=== PATIENT | male | born 1990 | race Caucasian/White ===

== ENCOUNTER 2016-07-10 00:37 | Emergency (ER) | payer OTHER ==
--- NOTE | 2016-07-10 02:13 | ED ---
ENT HPI - General Chief complaint: Dental/Oral Stated complaint: jaw pain Time Seen by Provider: 07/10/16 01:37 Source: patient, RN notes reviewed, old records reviewed Mode of arrival: ambulatory Limitations: no limitations - History of Present Illness Initial comments: This is a 25 year old male with chief complaint of left sided jaw pain. PAtient states that the pain only occurs with certain muvements of the mouth, states that he has poor dentition but denies any tooth pain, swelling or drainage arond the gums. PAtient denies difficulty opening or closing mouth. - Related Data Home Medications Medication Instructions Recorded Confirmed Ibuprofen [Motrin] 800 mg PO TID 07/14/16 07/14/16 Allergies Allergy/AdvReac Type Severity Reaction Status Date / Time diphenhydramine Allergy Rash/Hives Verified 07/14/16 03:53 [From Ganesh] Review of Systems ROS Statement: Those systems with pertinent positive or pertinent negative responses have been documented in the HPI. ROS Other: All systems not noted in ROS Statement are negative. Constitutional: Denies: fever Eyes: Denies: eye pain ENT: Denies: ear pain, throat pain Respiratory: Reports: as per HPI. Denies: cough, dyspnea Cardiovascular: Reports: chest pain. Denies: palpitations Endocrine: Denies: fatigue Gastrointestinal: Denies: abdominal pain Genitourinary: Denies: urgency, dysuria Musculoskeletal: Denies: back pain Skin: Denies: rash Neurological: Denies: headache Psychiatric: Denies: anxiety Past Medical History Past Medical History: No Reported History History of Any Multi-Drug Resistant Organisms: None Reported Past Surgical History: No Surgical Hx Reported Past Psychological History: No Psychological Hx Reported Smoking Status: Current every day smoker Past Alcohol Use History: Occasional Past Drug Use History: None Reported General Exam Limitations: no limitations General appearance: alert, in no apparent distress Head exam: Present: atraumatic, normocephalic, normal inspection Eye exam: Present: normal appearance, PERRL, EOMI. Absent: scleral icterus, conjunctival injection, periorbital swelling ENT exam: Present: normal exam, mucous membranes moist Neck exam: Present: normal inspection. Absent: tenderness, meningismus, lymphadenopathy Respiratory exam: Present: normal lung sounds bilaterally. Absent: respiratory distress, wheezes, rales, rhonchi, stridor Cardiovascular Exam: Present: regular rate, normal rhythm, normal heart sounds. Absent: systolic murmur, diastolic murmur, rubs, gallop, clicks GI/Abdominal exam: Present: soft, normal bowel sounds. Absent: distended, tenderness, guarding, rebound, rigid Extremities exam: Present: normal inspection, full ROM, normal capillary refill. Absent: tenderness, pedal edema, joint swelling, calf tenderness Back exam: Present: normal inspection Neurological exam: Present: alert, oriented X3, CN II-XII intact Psychiatric exam: Present: normal affect, normal mood Skin exam: Present: warm, dry, intact, normal color. Absent: rash Course Vital Signs 07/10/16 07/10/16 00:53 02:45 Temperature 98.5 F 98.3 F Pulse Rate 100 77 Respiratory 20 16 Rate Blood Pressure 134/75 117/73 O2 Sat by Pulse 100 99 Oximetry Medical Decision Making - Medical Decision Making Patient is a 25 year old male with left upper jaw pain, patient has poor dentition in molars. No evidence of abscess or erythema. Discussed likely an exposed nerve root causing referred pain. Discarged patient with pain medicaiton , discussed follow up with dentist and oral surgeon. Agrees to treatment plan and will comply. Disposition Clinical Impression: Jaw pain Disposition: HOME SELF-CARE Condition: Good Instructions: Temporomandibular Disorder (ED) Additional Instructions: Patient advised to follow-up with primary care provider. Also follow-up with dentist for chronic tooth pain. Return to emergency department if any alarming signs or symptoms occur. Referrals: Kris Sykes MD [Primary Care Provider] - 1-2 days Time of Disposition: 02:12
[2016-07-10 02:51] VITALS: BP 117/73; PULSE 77; RESP 16; TEMP 98.3
== END 2016-07-10 02:45 | disposition home or self-care (01) ==
LOC: EC 00:37
DX: R68.84 Jaw pain (principal); F17.200 Nicotine dependence, unspecified, uncomplicated
CPT/HCPCS: 99283

== ENCOUNTER 2016-07-14 03:47 | Emergency (ER) | payer OTHER ==
--- NOTE | 2016-07-14 04:12 | ED ---
General Adult HPI - General Chief complaint: Back Pain/Injury Stated complaint: Back pain and abdominal cramping Time Seen by Provider: 07/14/16 04:00 Source: patient, RN notes reviewed Mode of arrival: ambulatory Limitations: no limitations - History of Present Illness Initial comments: Patient is a pleasant 25-year-old male presenting to the emergency Department with complaints of back discomfort. Symptoms have been present for a couple of days. Patient does do a lot of lifting at work and wonders if this is part of the problem. Patient is also feeling somewhat constipated and having abdominal cramping. Patient has been taking Motrin or the past week and questions if this is having heart to do with it. Patient wonders if there could be some kidney problems. No fevers. No nausea vomiting. No diarrhea. No dysuria or hematuria. - Related Data Home Medications Medication Instructions Recorded Confirmed Ibuprofen [Motrin] 800 mg PO TID 07/14/16 07/14/16 Allergies Allergy/AdvReac Type Severity Reaction Status Date / Time diphenhydramine Allergy Rash/Hives Verified 07/14/16 03:53 [From Ganesh] Review of Systems ROS Statement: Those systems with pertinent positive or pertinent negative responses have been documented in the HPI. ROS Other: All systems not noted in ROS Statement are negative. Constitutional: Denies: fever Eyes: Denies: eye pain ENT: Denies: ear pain Respiratory: Denies: cough Cardiovascular: Denies: chest pain Endocrine: Denies: fatigue Gastrointestinal: Reports: abdominal pain (Cramping) Genitourinary: Denies: dysuria Musculoskeletal: Reports: back pain (Lower back) Skin: Denies: rash Neurological: Denies: weakness Past Medical History Past Medical History: No Reported History History of Any Multi-Drug Resistant Organisms: None Reported Past Surgical History: No Surgical Hx Reported Past Psychological History: No Psychological Hx Reported Smoking Status: Current every day smoker Past Alcohol Use History: Occasional Past Drug Use History: None Reported General Exam Limitations: no limitations General appearance: alert, in no apparent distress Head exam: Present: atraumatic Eye exam: Present: normal appearance, PERRL ENT exam: Present: normal oropharynx Neck exam: Present: normal inspection Respiratory exam: Present: normal lung sounds bilaterally Cardiovascular Exam: Present: regular rate, normal rhythm Expanded Peripheral pulses: 2+: Dorsalis Pedis (R), Dorsalis Pedis (L) GI/Abdominal exam: Present: soft, normal bowel sounds. Absent: distended, tenderness, guarding, rebound, rigid, pulsatile mass Extremities exam: Present: normal inspection. Absent: pedal edema, calf tenderness Back exam: Present: tenderness (Mild tenderness lower back) Neurological exam: Present: alert. Absent: motor sensory deficit Expanded Motor strength exam: RLE: 5, LLE: 5 Psychiatric exam: Present: normal affect, normal mood Skin exam: Present: normal color Course Vital Signs 07/14/16 03:50 Temperature 98.0 F Pulse Rate 99 Respiratory 18 Rate Blood Pressure 122/62 O2 Sat by Pulse 99 Oximetry - Reevaluation(s) Reevaluation #1: 07/14/16 04:11 Patient advised to have blood work and x-ray and urinalysis done. Patient refuses x-rays and blood work. Patient is agreeable for urinalysis. Patient does demonstrate understanding that results will be limited. Medical Decision Making - Medical Decision Making Patient updated on results and need for follow-up. - Lab Data Lab Results 07/14/16 Range/Units 04:07 Urine Color Yellow Urine Appearance Clear (Clear) Urine pH 6.0 (5.0-8.0) Ur Specific [place] 1.028 (1.001-1.035) Urine Protein Trace H (Negative) Urine Glucose (UA) Negative (Negative) Urine Ketones Negative (Negative) Urine Blood Negative (Negative) Urine Nitrite Negative (Negative) Urine Bilirubin Negative (Negative) Urine Urobilinogen 3.0 (<2.0) mg/dL Ur Leukocyte Esterase Negative (Negative) Disposition Clinical Impression: Low back pain Disposition: HOME SELF-CARE Condition: Stable Instructions: Acute Low Back Pain (ED) Additional Instructions: Please follow-up with your doctor within the next week. Please consider having x-rays and blood work done. Return for increased pain, vomiting, Speech or diarrhea, fevers, worsening symptoms or other concerns. Referrals: Kris Sykes MD [Primary Care Provider] - 1-2 days Time of Disposition: 04:49
[2016-07-14 04:15] LABS: Appearance,Urine Clear (Clear); Bilirubin,Urine Negative (Negative); Glucose,Urine (UA) Negative (Negative); Ketones,Urine Negative (Negative); Leukocyte Esterase,Urine Negative (Negative); Nitrite,Urine Negative (Negative); Protein,Urine Trace (Negative); Specific Gravity,Urine 1.028 (1.001-1.035); UA Billing (MACRO vs. MICRO) CHEM
[2016-07-14 05:02] VITALS: BP 128/76; PULSE 89; RESP 20; TEMP 98.1
== END 2016-07-14 05:02 | disposition home or self-care (01) ==
LOC: EC 03:47
DX: M54.5 Low back pain (principal); K59.00 Constipation, unspecified; F17.200 Nicotine dependence, unspecified, uncomplicated; Z79.1 Long term (current) use of non-steroidal anti-inflammatories (NSAID); Z88.8 Allergy status to other drugs, medicaments and biological substances
CPT/HCPCS: 81003; 87086; 99284

== ENCOUNTER 2016-12-01 09:43 | Emergency (ER) | payer OTHER ==
[2016-12-01 09:48] VITALS: BP 118/74; PULSE 90; RESP 20; TEMP 98.3
--- NOTE | 2016-12-01 10:17 | ED ---
General Adult HPI - General Chief complaint: Recheck/Abnormal Lab/Rx Stated complaint: LUNG PAIN Time Seen by Provider: 12/01/16 10:04 Source: patient, RN notes reviewed Mode of arrival: ambulatory Limitations: no limitations - History of Present Illness Initial comments: 26 yo male with no significant past medical history presents for evaluation of cough and abnormal x-ray from urgent care. Patient went to urgent care yesterday for a repeat visit for evaluation of cough, nasal congestion, and bilateral chest pain. Pain is worse with coughing. Cough is mostly dry, occasionally productive of white-yellow sputum. Patient also has nasal congestion and rhinorrhea. Mild sore throat. The symptoms have been present for approximately 2 weeks. 7-10 days ago patient went for initial evaluation at urgent care, he was prescribed Flonase, prednisone, and Zyrtec. His symptoms did somewhat improve. However over the course of the week she developed chest pain with his cough, and cough became somewhat productive. His who is at bedside had similar symptoms. She is just getting over her cough and runny nose. Patient denies current fever. Other than chest pain and cough he has no other complaints. No nausea,vomiting or diarrhea. No fever or chills. Patient was told by urgent care that his x-ray may have an abnormal finding and is seeking a second opinion. No history of asthma, patient is a current smoker. - Related Data Home Medications Medication Instructions Recorded Confirmed Albuterol Nebulized [Ventolin 2.5 mg INHALATION RT-Q6H PRN 12/01/16 12/01/16 Nebulized] Ibuprofen [Motrin] 600 mg PO Q6HR PRN 12/01/16 12/01/16 Previous Rx's Medication Instructions Recorded Ibuprofen [Motrin] 600 mg PO Q8HR PRN #24 tab 12/01/16 Allergies Allergy/AdvReac Type Severity Reaction Status Date / Time diphenhydramine Allergy Rash/Hives Verified 12/01/16 09:55 [From Benadryl] Review of Systems ROS Statement: Those systems with pertinent positive or pertinent negative responses have been documented in the HPI. ROS Other: All systems not noted in ROS Statement are negative. Past Medical History Past Medical History: No Reported History History of Any Multi-Drug Resistant Organisms: None Reported Past Surgical History: No Surgical Hx Reported Past Psychological History: No Psychological Hx Reported Smoking Status: Current every day smoker Past Alcohol Use History: Occasional Past Drug Use History: None Reported General Exam Limitations: no limitations General appearance: alert, in no apparent distress Head exam: Present: atraumatic, normocephalic Eye exam: Present: normal appearance ENT exam: Present: normal exam, mucous membranes moist Neck exam: Present: normal inspection. Absent: meningismus Respiratory exam: Present: normal lung sounds bilaterally, chest wall tenderness. Absent: respiratory distress, wheezes, rales, rhonchi, accessory muscle use Cardiovascular Exam: Present: regular rate, normal rhythm GI/Abdominal exam: Present: soft. Absent: distended, tenderness Extremities exam: Present: normal inspection, normal capillary refill. Absent: pedal edema Neurological exam: Present: alert, oriented X3, CN II-XII intact. Absent: motor sensory deficit Psychiatric exam: Present: normal affect, normal mood Skin exam: Present: warm, dry, intact. Absent: cyanosis, diaphoretic Course Vital Signs 12/01/16 09:45 Temperature 98.3 F Pulse Rate 90 Respiratory 20 Rate Blood Pressure 118/74 O2 Sat by Pulse 100 Oximetry Medical Decision Making - Medical Decision Making 26-year-old male with two-week history of cough and rhinorrhea presenting for repeat evaluation after being seen at urgent care. Patient was told his x-ray at urgent care was abnormal and would like a second opinion. Patient is well-appearing on examination, vital signs are stable, oxygen saturation 100% on room air, heart rate 90. Patient's lungs are clear to auscultation bilaterally, no respiratory distress, no wheezing, no rhonchi, no refills. Chest x-ray shows no focal pneumonia, no pneumothorax or pulmonary edema. Patient states overall his symptoms are improving. He will continue stay hydrated, take Motrin for his pain. He will follow up as primary care physician in the next several days. Disposition Clinical Impression: Viral URI with cough Disposition: HOME SELF-CARE Condition: Good Instructions: Upper Respiratory Infection (ED) Prescriptions: Ibuprofen [Motrin] 600 mg PO Q8HR PRN #24 tab PRN Reason: Pain Referrals: Kris Sykes MD [Primary Care Provider] - 1-2 days Time of Disposition: 10:51
--- NOTE | 2016-12-01 10:31 | XR ---
EXAMINATION TYPE: XR chest 2V DATE OF EXAM: 12/01/2016 COMPARISON: NONE TECHNIQUE: PA and lateral views submitted. HISTORY: Cough FINDINGS: The lungs are clear and there is no pneumothorax, pleural effusion, or focal pneumonia. IMPRESSION: 1. No acute process.
== END 2016-12-01 11:18 | disposition home or self-care (01) ==
LOC: EC 09:43
DX: J06.9 Acute upper respiratory infection, unspecified (principal); R07.9 Chest pain, unspecified; F17.200 Nicotine dependence, unspecified, uncomplicated; Z88.8 Allergy status to other drugs, medicaments and biological substances
CPT/HCPCS: 71020; 99283

== ENCOUNTER 2016-12-07 03:06 | Emergency (ER) | payer OTHER ==
[2016-12-07 03:14] VITALS: BP 133/72; PULSE 84; RESP 18; TEMP 98.6
--- NOTE | 2016-12-07 03:29 | ED ---
General Adult HPI - General Chief complaint: Anxiety Stated complaint: high BP Time Seen by Provider: 12/07/16 03:17 Source: patient, RN notes reviewed Mode of arrival: ambulatory Limitations: no limitations - History of Present Illness Initial comments: 26-year-old male presents for evaluation of anxiety. Patient was at the dentist yesterday, was told he had to have multiple teeth extracted in a significant amount of dental work done. His been worried about this, he was also told him elevated blood pressure 140/80. He was concerned as this is abnormal for him. This was while he was at the dentist office. Had some palpitations associated with this. Nausea. All the symptoms are currently resolved. States he feels anxious about work he has to done on his teeth. He has had some minimal pain since his visit to the dentist office. His been taking Tylenol Motrin which have been relieving his symptoms. - Related Data Home Medications Medication Instructions Recorded Confirmed Albuterol Nebulized [Ventolin 2.5 mg INHALATION RT-Q6H PRN 12/01/16 12/07/16 Nebulized] Ibuprofen [Motrin] 600 mg PO Q6HR PRN 12/01/16 12/07/16 Previous Rx's Medication Instructions Recorded Ibuprofen [Motrin] 600 mg PO Q8HR PRN #24 tab 12/01/16 Allergies Allergy/AdvReac Type Severity Reaction Status Date / Time diphenhydramine Allergy Rash/Hives Verified 12/07/16 03:15 [From Benadryl] Review of Systems ROS Statement: Those systems with pertinent positive or pertinent negative responses have been documented in the HPI. ROS Other: All systems not noted in ROS Statement are negative. Past Medical History Past Medical History: No Reported History History of Any Multi-Drug Resistant Organisms: None Reported Past Surgical History: No Surgical Hx Reported Past Psychological History: ADD/ADHD Smoking Status: Current every day smoker Past Alcohol Use History: Occasional Past Drug Use History: None Reported General Exam Limitations: no limitations General appearance: alert, in no apparent distress, anxious Head exam: Present: atraumatic, normocephalic Eye exam: Present: normal appearance, PERRL ENT exam: Present: other (Poor dentition throughout) Neck exam: Present: normal inspection. Absent: tenderness Respiratory exam: Present: normal lung sounds bilaterally. Absent: respiratory distress Cardiovascular Exam: Present: regular rate, normal rhythm GI/Abdominal exam: Present: soft. Absent: distended, tenderness Extremities exam: Present: normal inspection Neurological exam: Present: alert, oriented X3. Absent: motor sensory deficit Psychiatric exam: Present: anxious Skin exam: Present: warm, dry, intact. Absent: cyanosis, diaphoretic Course Vital Signs 12/07/16 03:10 Temperature 98.6 F Pulse Rate 84 Respiratory 18 Rate Blood Pressure 133/72 O2 Sat by Pulse 100 Oximetry Medical Decision Making - Medical Decision Making 26-year-old male with anxiety about his poor dentition and need for dental work. Patient does have multiple dental caries on examination. No signs of infection. Patient's vital signs are stable. He will follow-up with his primary care physician and his dentist. Disposition Clinical Impression: Acute anxiety Disposition: HOME SELF-CARE Condition: Good Instructions: Anxiety (ED) Referrals: Kris Sykes MD [Primary Care Provider] - 1-2 days Time of Disposition: 03:29
== END 2016-12-07 03:45 | disposition home or self-care (01) ==
LOC: EC 03:06
DX: F41.9 Anxiety disorder, unspecified (principal); K02.9 Dental caries, unspecified; F17.200 Nicotine dependence, unspecified, uncomplicated; Z88.8 Allergy status to other drugs, medicaments and biological substances
CPT/HCPCS: 99283

== ENCOUNTER 2017-01-25 22:13 | Emergency (ER) | payer OTHER ==
[2017-01-25 22:35] VITALS: BP 128/77; PULSE 85; RESP 18; TEMP 98.3
--- NOTE | 2017-01-25 22:48 | ED ---
ENT HPI - General Chief complaint: Dental/Oral Stated complaint: Abcess Gum Time Seen by Provider: 01/25/17 22:18 Source: patient, RN notes reviewed, old records reviewed Mode of arrival: ambulatory Limitations: no limitations - History of Present Illness Initial comments: 26-year-old male chief complaint of gum swelling and irritation. He reports that start after he had Antony's. He says that he has a bad tooth in the area. He 's concerned because the swelling over the gum. He's concerned for an abscess. Patients fever or chills. Denies any trismus. Patient has had no other symptoms. He reports it feels better after motrin. Patient states that he doesnot see a dentist regularly. Denies any other symptoms. - Related Data Home Medications Medication Instructions Recorded Confirmed Acetaminophen Tab [Tylenol Tab] 650 mg PO Q6H PRN 12/27/16 01/25/17 Ibuprofen [Motrin] 200 - 400 mg PO Q6HR PRN 01/25/17 01/25/17 Previous Rx's Medication Instructions Recorded Amoxicillin 6 ml PO TID 10 Days 01/25/17 Allergies Allergy/AdvReac Type Severity Reaction Status Date / Time diphenhydramine Allergy Rash/Hives Verified 01/25/17 22:41 [From Benadjohnl] Review of Systems ROS Statement: Those systems with pertinent positive or pertinent negative responses have been documented in the HPI. ROS Other: All systems not noted in ROS Statement are negative. Past Medical History Past Medical History: No Reported History History of Any Multi-Drug Resistant Organisms: None Reported Past Surgical History: No Surgical Hx Reported Past Psychological History: ADD/ADHD Smoking Status: Current every day smoker Past Alcohol Use History: Occasional Past Drug Use History: None Reported General Exam - General Exam Comments Initial Comments: This is a 26-year-old male. No distress. Limitations: no limitations General appearance: alert, in no apparent distress Head exam: Present: atraumatic, normocephalic, normal inspection Eye exam: Present: normal appearance, PERRL, EOMI. Absent: scleral icterus, conjunctival injection, periorbital swelling ENT exam: Present: normal exam, mucous membranes moist. Absent: normal oropharynx (swelling boer gum of tooth 19, appears to be an ulcer as well. ) Neck exam: Present: normal inspection. Absent: tenderness, meningismus, lymphadenopathy Respiratory exam: Present: normal lung sounds bilaterally. Absent: respiratory distress, wheezes, rales, rhonchi, stridor Cardiovascular Exam: Present: regular rate, normal rhythm, normal heart sounds. Absent: systolic murmur, diastolic murmur, rubs, gallop, clicks GI/Abdominal exam: Present: soft, normal bowel sounds. Absent: distended, tenderness, guarding, rebound, rigid Extremities exam: Present: normal inspection, full ROM, normal capillary refill. Absent: tenderness, pedal edema, joint swelling, calf tenderness Back exam: Present: normal inspection Neurological exam: Present: alert, oriented X3, CN II-XII intact Course Vital Signs 01/25/17 22:29 Temperature 98.3 F Pulse Rate 85 Respiratory 18 Rate Blood Pressure 128/77 O2 Sat by Pulse 98 Oximetry Medical Decision Making - Medical Decision Making 26-year-old male presents with gums willing irritation after eating Antony's. He will be going on the past few days. He's been in salt water gargles with no relief. He's concerned he has an abscess. He does have some swelling around the tooth number 19. Appears like an early abscess. No drainage noted at this time. , Request liquid medication, startedon amoxicllin. Also discussed Motrin for pain and salt water rinses.Return parameters discussed. Given information for dental clinic. Disposition Clinical Impression: Dental infection Disposition: HOME SELF-CARE Condition: Good Instructions: Dental Caries (ED) Additional Instructions: Patient advised to follow-up with primary care provider. Continue to do salt water rinses. Recommended applying Orajel over the area. Take Motrin or Tylenol for pain. He can take the medicine as prescribed to unsure is no dental abscess that can occur. Prescriptions: Amoxicillin 6 ml PO TID 10 Days Referrals: Kris Sykes MD [Primary Care Provider] - 1-2 days Time of Disposition: 22:46
== END 2017-01-25 23:08 | disposition home or self-care (01) ==
LOC: EC 22:13
DX: K04.7 Periapical abscess without sinus (principal); F17.200 Nicotine dependence, unspecified, uncomplicated; Z88.8 Allergy status to other drugs, medicaments and biological substances
CPT/HCPCS: 99283

== ENCOUNTER 2019-04-18 01:43 | Emergency (ER) | payer OTHER ==
[2019-04-18 01:51] VITALS: BP 137/80; PULSE 86; RESP 16; TEMP 98.1
--- NOTE | 2019-04-18 02:17 | ED ---
General Adult HPI - General Chief complaint: Nausea/Vomiting/Diarrhea Stated complaint: Feeling Unwell Time Seen by Provider: 04/18/19 01:54 Source: patient, RN notes reviewed Mode of arrival: ambulatory - History of Present Illness Initial comments: 28-year-old male presents to the emergency department for a chief diarrhea. Patient states he has had 2 episodes of loose stools over the past 2 days. States he has also had nausea. States the nausea is only right before he has his loose stool. States he has some cramping before the loose stool but the numbness resolves. He denies any complaints at this time. Is denying any abdominal pain nausea or vomiting at this time. Patient has not vomited over the past several days. No fevers. Patient states he needs a note for work as he did not go today with these symptoms because he doesn't want to lose his job.Patient has no other complaints at this time including shortness of breath, chest pain, abdominal pain, nausea or vomiting, headache, or visual changes. - Related Data Home Medications Medication Instructions Recorded Confirmed Acetaminophen Tab [Tylenol Tab] 650 mg PO Q6H PRN 12/27/16 01/25/17 Ibuprofen [Motrin] 200 - 400 mg PO Q6HR PRN 01/25/17 01/25/17 Previous Rx's Medication Instructions Recorded Amoxicillin 6 ml PO TID 10 Days 01/25/17 Dicyclomine [Bentyl] 20 mg PO TID PRN #20 tablet 04/18/19 Ondansetron [Zofran ODT] 4 mg PO Q8HR PRN #15 tab 04/18/19 Allergies Allergy/AdvReac Type Severity Reaction Status Date / Time diphenhydramine Allergy Rash/Hives Verified 04/18/19 01:51 [From Benadryl] Review of Systems ROS Statement: Those systems with pertinent positive or pertinent negative responses have been documented in the HPI. ROS Other: All systems not noted in ROS Statement are negative. Past Medical History Past Medical History: No Reported History History of Any Multi-Drug Resistant Organisms: None Reported Past Surgical History: No Surgical Hx Reported Past Psychological History: ADD/ADHD Smoking Status: Current every day smoker Past Alcohol Use History: Occasional Past Drug Use History: None Reported General Exam General appearance: alert, in no apparent distress Head exam: Present: atraumatic, normocephalic, normal inspection Eye exam: Present: normal appearance, PERRL, EOMI. Absent: scleral icterus, conjunctival injection, periorbital swelling ENT exam: Present: normal exam, mucous membranes moist Neck exam: Present: normal inspection, full ROM. Absent: tenderness, meningismus, lymphadenopathy Respiratory exam: Present: normal lung sounds bilaterally. Absent: respiratory distress, wheezes, rales, rhonchi, stridor Cardiovascular Exam: Present: regular rate, normal rhythm, normal heart sounds. Absent: systolic murmur, diastolic murmur, rubs, gallop, clicks GI/Abdominal exam: Present: soft, normal bowel sounds. Absent: distended, tenderness (No abdominal tenderness whatsoever), guarding, rebound, rigid Back exam: Absent: CVA tenderness (R), CVA tenderness (L) Neurological exam: Present: alert Course Vital Signs 04/18/19 01:48 Temperature 98.1 F Pulse Rate 86 Respiratory 16 Rate Blood Pressure 137/80 O2 Sat by Pulse 97 Oximetry Medical Decision Making - Medical Decision Making Vitals are stable. Pulse is 86. Patient is afebrile. Physical exam is unremarkable. Patient is actually denying any symptoms at this time. Patient refuses IV or blood work stating "I hate needles." Patient states he needs a note for work as he does not want to lose his job. Patient will be given Zofran for nausea although he refuses any here as he is not symptomatic at this time. He will also be written a prescription for Bentyl if he has any cramping pain but again denies this at this time. Patient will follow up with primary care and return here with any worsening symptoms. He does not want further workup. Disposition Clinical Impression: Diarrhea Disposition: HOME SELF-CARE Condition: Good Instructions (If sedation given, give patient instructions): Acute Diarrhea (ED), Acute Nausea and Vomiting (ED) Additional Instructions: Please take zofran as needed for nausea. Take Bentyl as needed for cramping abdominal pain. Followup with primary care. Return to the emergency department if you have any worsening symptoms. Prescriptions: Dicyclomine [Bentyl] 20 mg PO TID PRN #20 tablet PRN Reason: abdominal pain Ondansetron [Zofran ODT] 4 mg PO Q8HR PRN #15 tab PRN Reason: Nausea Is patient prescribed a controlled substance at d/c from ED?: No Referrals: Kris Sykes MD [Primary Care Provider] - 1-2 days Time of Disposition: 02:15
== END 2019-04-18 02:25 | disposition home or self-care (01) ==
LOC: EC 01:43
DX: R19.7 Diarrhea, unspecified (principal); R11.0 Nausea; F17.200 Nicotine dependence, unspecified, uncomplicated; Z88.8 Allergy status to other drugs, medicaments and biological substances
CPT/HCPCS: 99283

== ENCOUNTER 2023-07-05 09:16 | Emergency (ER) | payer OTHER ==
--- NOTE | 2023-07-05 10:04 | XR ---
EXAMINATION TYPE: XR chest 2V DATE OF EXAM: 07/05/2023 COMPARISON: 12/01/2016 TECHNIQUE: PA and lateral views submitted. HISTORY: Fever FINDINGS: The lungs are clear and there is no pneumothorax, pleural effusion, or focal pneumonia. Heart size normal and no overt failure. Osseous structures demonstrate hypertrophic and degenerative changes of the spine. IMPRESSION: 1. No acute process.
--- NOTE | 2023-07-05 10:33 | ED ---
URI HPI - General Chief Complaint: Upper Respiratory Infection Stated Complaint: Sore throat Time Seen by Provider: 07/05/23 09:22 Source: patient, RN notes reviewed Mode of arrival: ambulatory Limitations: no limitations - History of Present Illness Initial Comments: 32-year-old male presents emerged department complaint sore throat, fever, body aches and a cough. Patient states that his coworker had similar symptoms. Patient states that he has not had no GI symptoms no significant past medical history denies any neck pain or neck stiffness does complain of mild headache. - Related Data Home Medications Medication Instructions Recorded Confirmed Ibuprofen [Motrin] 200 - 400 mg PO Q6HR PRN 01/25/17 07/05/23 Acetaminophen Tab [Tylenol Tab] 1,000 mg PO Q6HR PRN 07/05/23 07/05/23 Allergies Allergy/AdvReac Type Severity Reaction Status Date / Time diphenhydramine Allergy Rash/Hives Verified 07/05/23 10:31 [From Ganesh] Review of Systems ROS Statement: Those systems with pertinent positive or pertinent negative responses have been documented in the HPI. ROS Other: All systems not noted in ROS Statement are negative. Past Medical History Past Medical History: No Reported History History of Any Multi-Drug Resistant Organisms: None Reported Past Surgical History: No Surgical Hx Reported Past Psychological History: ADD/ADHD Past Alcohol Use History: Occasional Past Drug Use History: None Reported General Exam Limitations: no limitations General appearance: alert, in no apparent distress Head exam: Present: atraumatic, normocephalic, normal inspection Eye exam: Present: normal appearance, PERRL, EOMI. Absent: scleral icterus, conjunctival injection, periorbital swelling ENT exam: Present: mucous membranes moist. Absent: normal oropharynx (Mild erythema) Neck exam: Present: normal inspection, full ROM. Absent: tenderness, meningismus, lymphadenopathy Respiratory exam: Present: normal lung sounds bilaterally. Absent: respiratory distress, wheezes, rales, rhonchi, stridor Cardiovascular Exam: Present: regular rate, normal rhythm, normal heart sounds. Absent: systolic murmur, diastolic murmur, rubs, gallop, clicks GI/Abdominal exam: Present: soft, normal bowel sounds. Absent: distended, tenderness, guarding, rebound, rigid Neurological exam: Present: alert Course Vital Signs 07/05/23 07/05/2324 09:29 09:39 11:03 Temperature 98.9 F 98.4 F Pulse Rate 101 H 96 Respiratory 20 18 20 Rate Blood Pressure 116/77 110/80 O2 Sat by Pulse 99 97 Oximetry Medical Decision Making - Medical Decision Making Was pt. sent in by a medical professional or institution ([facility]AS[facility] Pizarro, [employer] OPERATOR, urgent care, hospital, or half-way...) When possible be specific @ -No Did you speak to anyone other than the patient for history (EMS, parent, family, police, friend...)? What history was obtained from this source @ -No Did you review nursing and triage notes (agree or disagree)? Why? @ -I reviewed and agree with nursing and triage notes Were old charts reviewed (outside hosp., previous admission, EMS record, old EKG, old radiological studies, urgent care reports/EKG's, half-way records)? Report findings @ -No old charts were reviewed Differential Diagnosis (chest pain, altered mental status, abdominal pain women, abdominal pain men, vaginal bleeding, weakness, fever, dyspnea, syncope, headache, dizziness, GI bleed, back pain, seizure, CVA, palpatations, mental health, musculoskeletal)? @ -COVID 19, RSV, influenza, pneumonia, acute bronchitis, URI, this list is not all inclusive EKG interpreted by me (3pts min.). @ -None X-rays interpreted by me (1pt min.). @ -Chest x-ray no acute process CT interpreted by me (1pt min.). @ -None done U/S interpreted by me (1pt. min.). @ -None done What testing was considered but not performed or refused? (CT, X-rays, U/S, labs)? Why? @ -None What meds were considered but not given or refused? Why? @ -None Did you discuss the management of the patient with other professionals (professionals i.e. VASYL Pizarro, COKE CRANE OPERATOR, lab, RT, psych nurse, social services technician, sole leveler, teacher, commanding officer garage, director of casework)? Give summary @ -No Was smoking cessation discussed for >3mins.? @ -No Was critical care preformed (if so, how long)? @ -No Were there social determinants of health that impacted care today? How? (Homelessness, low income, unemployed, alcoholism, drug addiction, transportation, low edu. Level, literacy, decrease access to med. care, [facility], rehab)? @ -No Was there de-escalation of care discussed even if they declined (Discuss DNR or withdrawal of care, Hospice)? DNR status @ -No What co-morbidities impacted this encounter? (DM, HTN, Smoking, COPD, CAD, Cancer, CVA, ARF, Chemo, Hep., AIDS, mental health diagnosis, sleep apnea, morbid obesity)? @ -None Was patient admitted / discharged? Hospital course, mention meds given and route, prescriptions, significant lab abnormalities, going to OR and other pertinent info. @ -Discharge patient's viral Cepheid, strep was negative x-rays unremarkable patient discharged with viral URI Undiagnosed new problem with uncertain prognosis? @ -No Drug Therapy requiring intensive monitoring for toxicity (Heparin, Nitro, Insulin, Cardizem)? @ -No Were any procedures done? @ -No Diagnosis/symptom? @ -Viral URI Acute, or Chronic, or Acute on Chronic? @ -Acute Uncomplicated (without systemic symptoms) or Complicated (systemic symptoms)? @ -Uncomplicated Side effects of treatment? @ -No Exacerbation, Progression, or Severe Exacerbation? @ -No Poses a threat to life or bodily function? How? (Chest pain, USA, DC, pneumonia, PE, COPD, DKA, ARF, appy, cholecystitis, CVA, Diverticulitis, Homicidal, Suicidal, threat to staff... and all critical care pts) @ -No - Lab Data Lab Results 07/05/23 07/05/23 Range/Units 09:46 09:46 Influenza Type A (PCR) Not Detected (Not Detectd) Influenza Type B (PCR) Not Detected (Not Detectd) RSV (PCR) Not Detected (Not Detectd) SARS-CoV-2 (PCR) Not Detected (Not Detectd) Group A Strep (PCR) NOT DETECTED (Not Detectd) Disposition Clinical Impression: Viral URI, Viral sinusitis Disposition: HOME SELF-CARE Condition: Stable Instructions (If sedation given, give patient instructions): Upper Respiratory Infection (ED) Additional Instructions: Please return to the Emergency Department if symptoms worsen or any other concerns. Is patient prescribed a controlled substance at d/c from ED?: No Referrals: None,Stated [Primary Care Provider] - 1-2 days Time of Disposition: 10:33
[2023-07-05 11:37] VITALS: BP 110/80; PULSE 96; RESP 20; TEMP 98.4
== END 2023-07-05 11:05 | disposition home or self-care (01) ==
LOC: EC 09:16
DX: J01.90 Acute sinusitis, unspecified (principal); Z88.8 Allergy status to other drugs, medicaments and biological substances
CPT/HCPCS: 71046; 87636; 87651; 99283